=== PATIENT | female | born 1960 | race Caucasian/White ===

== ENCOUNTER → 2017-06-23 | Outpatient (CLI) | payer OTHER | LOC: FIMAGING 07:48 | PROVIDERS: ATTEND Obstetrics & Gynecology | DX: Z12.13 Encounter for screening for malignant neoplasm of small intestine (principal) | CPT/HCPCS: G0202 ==

== ENCOUNTER → 2018-09-15 | Outpatient (CLI) | payer OTHER | LOC: FIMAGING 08:04 ==

== ENCOUNTER → 2018-09-21 | Outpatient (CLI) | payer OTHER | LOC: FIMAGING 12:33 | PROVIDERS: ATTEND Internal Medicine | DX: Z13.820 Encounter for screening for osteoporosis (principal); E07.9 Disorder of thyroid, unspecified; Z78.0 Asymptomatic menopausal state; Z79.899 Other long term (current) drug therapy ==